=== PATIENT | female | born 1995 | race African-American/Black ===

== ENCOUNTER 2017-05-29 23:08 | Emergency (ER) | payer MEDICAID, SELFPAY ==
[2017-05-29 23:08] VITALS: BP 141/100; PULSE 73; RESP 16; TEMP 36.4; O2SAT 100; BMI 32.8
--- NOTE | 2017-05-29 23:21 | ED.VISSUMM ---
- ER Visit Summary Date of Service: 05/29/17 Chief Complaint: Sore throat History of Present Illness: The patient is a 22 F presenting for evaluation secondary to sore throat. Patient states over the course last 3 days she has had a sore throat. She states that it is associated with a swollen lymph node on the left side of her neck. Yesterday she had nausea and vomiting but has not had any today. States that it has been associated with subjective chills and sweats, and a mild cough that is nonproductive and only intermittent. Patient states that she does have a history of frequent tonsillitis in the past, has never seen ear nose and throat. She denies any other associated symptoms. Physical Examination: Vital signs within normal limits. Well-nourished female sitting comfortably in the bed no acute distress no evidence of respiratory difficulty or stridor. Head normocephalic atraumatic. TMs are clear bilaterally, no evidence of mastoid tenderness. Nose is normal. Oropharyngeal exam shows significant tonsillar swelling 4+ bilaterally with the tonsils actually touching in the middle, but very clearly visible posterior oropharynx past this both above and below the patient's tonsils. Patient is able to swallow and tolerate her secretions. There is mild amount of exudate noted. The patient's tonsillar swelling appear symmetric, and the uvula is midline. Neck exam shows asymmetric lymphadenopathy with the left tonsillar lymph nodes being large and palpable and minimally tender. Remainder the physical otherwise unremarkable. Test Results: None indicated Emergency Department Course and Treatment: Patient presented with a sore throat. Patient's tonsillar swelling in her pharynx seems symmetric, but she has asymmetric lymph node changes externally on her neck. I do believe that she warrants antibiotic treatment. Patient was given a dose of clindamycin and Decadron. Patient at this time shows no risk of airway compromise, I believe she is safe for discharge. Patient will be given referral to ENT for follow-up. She understands signs and symptoms for which to return. Disposition: Discharge Impression: 1. Tonsillitis This note was generated with [employer] software. It may contain incorrect words, spelling, and punctuation that were not noted in review of the chart prior to signing ED Disposition - Plan for ED Patient: Disposition: Home or Assisted Living Chief Complaint: Sore Throat Diagnosis: Tonsillitis Instructions: ED Tonsillitis Prescriptions: Clindamycin [Cleocin] 300 mg PO 4X/DAY #80 cap Referrals: Robin De Leon MD [STAFF PHYSICIAN] - As Needed
--- NOTE | 2017-05-29 23:27 | ED.DCSUM_ITS ---
- ER Visit Summary Date of Service: 05/29/17 Chief Complaint: Sore throat History of Present Illness: The patient is a 22 F presenting for evaluation secondary to sore throat. Patient states over the course last 3 days she has had a sore throat. She states that it is associated with a swollen lymph node on the left side of her neck. Yesterday she had nausea and vomiting but has not had any today. States that it has been associated with subjective chills and sweats, and a mild cough that is nonproductive and only intermittent. Patient states that she does have a history of frequent tonsillitis in the past , has never seen ear nose and throat. She denies any other associated symptoms. Physical Examination: Vital signs within normal limits. Well-nourished female sitting comfortably in the bed no acute distress no evidence of respiratory difficulty or stridor. Head normocephalic atraumatic. TMs are clear bilaterally, no evidence of mastoid tenderness. Nose is normal. Oropharyngeal exam shows significant tonsillar swelling 4+ bilaterally with the tonsils actually touching in the middle, but very clearly visible posterior oropharynx past this both above and below the patient's tonsils. Patient is able to swallow and tolerate her secretions. There is mild amount of exudate noted. The patient's tonsillar swelling appear symmetric, and the uvula is midline. Neck exam shows asymmetric lymphadenopathy with the left tonsillar lymph nodes being large and palpable and minimally tender. Remainder the physical otherwise unremarkable. Test Results: None indicated Emergency Department Course and Treatment: Patient presented with a sore throat. Patient's tonsillar swelling in her pharynx seems symmetric, but she has asymmetric lymph node changes externally on her neck. I do believe that she warrants antibiotic treatment. Patient was given a dose of clindamycin and Decadron. Patient at this time shows no risk of airway compromise, I believe she is safe for discharge. Patient will be given referral to ENT for follow- up. She understands signs and symptoms for which to return. Disposition: Discharge Impression: 1. Tonsillitis This note was generated with [employer] software. It may contain incorrect words, spelling, and punctuation that were not noted in review of the chart prior to signing ED Disposition - Plan for ED Patient: Disposition: Home or Assisted Living Chief Complaint: Sore Throat Diagnosis: Tonsillitis Instructions: ED Tonsillitis Prescriptions: Clindamycin [Cleocin] 300 mg PO 4X/DAY #80 cap Referrals: Robin De Leon MD [STAFF PHYSICIAN] - As Needed
[2017-05-29] MEDS: Clindamycin HCl 150 MG Capsule 300 MG PO (23:42)
[2017-05-29 23:44] VITALS: BP 138/90; PULSE 75; RESP 18; O2SAT 96
== END 2017-05-29 23:44 | disposition home or self-care (01) ==
PROVIDERS: Emergency Provider Emergency Medicine
DX: J03.90 Acute tonsillitis, unspecified (principal); R11.2 Nausea with vomiting, unspecified; R05 Cough
CPT/HCPCS: 99283

== ENCOUNTER → 2020-01-12 09:18 | Outpatient (CLI) | payer MEDICAID, SELFPAY ==
--- NOTE | 2020-01-12 09:28 | RAD_ITS ---
PROCEDURE: ESOPHAGRAM - UPPER GASTROINTESTINAL STUDY DATE OF EXAMINATION: 01/12/2020. INDICATION: Female, 24 years old. Gastroesophageal reflux. PHYSICIAN: Keegan August M.D. FLUOROSCOPY TIME (if supplied): (0:53) minutes/seconds TECHNIQUE: The esophagus, stomach, duodenum and proximal small bowel were evaluated initially with Gastrografin and then with barium. The contrast material passes freely through the structures with no intraluminal filling defect identified. There is no mucosal irregularity. There is no leakage of contrast outside the gastrointestinal system. The proximal small bowel is not dilated and there is a rapid transient time for the contrast to pass through the gastrointestinal tract. RAD/Upper GI Dual Contrast IMPRESSION: 1. The esophagus, stomach, duodenum and proximal small bowel have a normal appearance. 2. No radiopaque filling defect is seen in the area evaluated. 3. The small bowel is not dilated and there is a rapid transit time for contrast to move through the bowel confirming no bowel obstruction. Electronically Signed: Keegan August, at 10:14 EST , Service support ,
== END ==
PROVIDERS: Referring Provider Nurse Practitioner Adult Health; Visit Provider Nurse Practitioner Adult Health
DX: R11.0 Nausea (principal); R12 Heartburn; R68.81 Early satiety
CPT/HCPCS: 74246

== ENCOUNTER → 2022-01-28 | Outpatient (CLI) | payer MEDICAID, SELFPAY ==
--- NOTE | 2022-01-28 09:00 | TONS_PTH ---
PATIENT: MUSTAPHA RUTHERFORD LOC: [facility] U#:[id number] AGE/SX: 26/F ROOM: RE01/28/[address]: Dr. Olivier Cross MD : 1995 BED: DIS: 01/28/2022 SPEC #: [id number] RECD: 01/28/22 14:56 STATUS: JESSIE UPTON #: [id number] MENG: 01/28/22 09:[address]: Olivier Cross DEPT: SURGICAL PATHOLOGY RECD BY: Tanika Mae ENTERED: 01/29/22 09:01 SP TYPE: TONSILS OTHR DR: No Primary Care Phys [facility] Tissues: Tonsil, NOS Procedures: Surgery Specimen Level III HEADER OPERATION: Tonsillectomy PRE-OP DIAGNOSIS: Chronic tonsillitis TISSUE SUBMITTED: Tonsils, right pinned MICROSCOPIC DIAGNOSIS Right tonsil, bilateral tonsillectomy: Benign lymphoid follicular hyperplasia. Organisms consistent with actinomyces. Left tonsil, tonsillectomy: Benign lymphoid follicular hyperplasia. AM:shalini 01/30/2022 MICROSCOPIC DESCRIPTION Slides are reviewed. GROSS DESCRIPTION Received is one container labeled with the patient's name and designated tonsils - pin on right are two tonsils that in aggregate weigh 14.9 gm. The right tonsil has a pin on it and measures 3.6 x 2 x 1.7 cm. The left tonsil measures 3.5 x 2.2 x 2 cm. Both tonsils are similar in appearance. The external surfaces are pink-robles, smooth, glistening and somewhat lobulated. Focally they are hemorrhagic, granular and bear cautery artifact. Serial cross sections through the tonsils reveal normal tonsillar architecture. Sections are submitted in two cassettes as follows: 1 - right tonsil, 2 - left tonsil. / AM:shalini 01/29/2022 TC:5 CPT: 24800 x2
== END | disposition home or self-care (01) ==
PROVIDERS: Visit Provider Otolaryngology
DX: J35.01 Chronic tonsillitis (principal)
CPT/HCPCS: 88304